=== PATIENT | male | born 1985 | race Caucasian/White ===

== ENCOUNTER 2020-06-07 18:28 | Emergency (ER) | payer OTHER, SELFPAY ==
[2020-06-07 19:14] VITALS: BP 142/65; PULSE 71; RESP 16; TEMP 36.6; O2SAT 98; BMI 57.0
--- NOTE | 2020-06-07 21:04 | ECG_ITS ---
Test Reason : HEADACHE Blood Pressure : / mmHG Vent. Rate : 061 BPM Atrial Rate : 061 BPM P-R Int : 202 ms QRS Dur : 102 ms QT Int : 400 ms P-R-T Axes : 019 -05 006 degrees QTc Int : 402 ms Normal sinus rhythm Normal ECG When compared with ECG of 15-MAY-2015 14:32, No significant change was found Referred By: Ramona Amezcua Electronically Signed By:JONATHON FOSTER MD
--- NOTE | 2020-06-07 21:04 | CT_ITS ---
EXAMINATION: CTA OF THE HEAD AND NECK CLINICAL INFORMATION: headache, R hand numbness, loss of vision R eye COMPARISON: None TECHNIQUE: Initial unenhanced multidetector volumetric CT images were obtained through the head. Test bolus sequences followed by intravenous administration 100 mL of Omnipaque 350. Helical imaging was performed in the axial plane from the mediastinum to the skull vertex. Delayed postcontrast imaging of the head was also performed. The data was processed at the ct scan special procedures technologist's workstation for generation of MIP sequences. Three-dimensional volume rendered reformatted images were also generated at an offline 3-D workstation. Stenoses are assessed in accordance with NASCET criteria unless otherwise indicated. DLP: 2631 mGy-cm. FINDINGS: CT head: There is no evidence of acute intracranial hemorrhage or territorial infarction. There is no loss of sanchez to white matter differentiation. No abnormal mass effect or midline shift is seen. No extra-axial fluid collections are identified. There is no abnormal enhancement. The ventricles are normal in size. There is no abnormal attenuation within the brain parenchyma. The osseous structures and soft tissues are normal. The mastoid air cells and visualized portions of the paranasal sinuses are well aerated. CTA neck: The aortic arch is of normal contour and caliber. Classic 3 vessel branching pattern of the aortic arch. No significant stenosis of the branch origins. Assessment of the carotid and vertebral arteries at the base of the neck is slightly limited by the artifact introduced by the significant bones and soft tissues at the level of the shoulders. The common and internal carotid arteries opacify normally without focal stenosis or occlusion. The cervical segments of the vertebral arteries opacify normally without focal stenosis or occlusion. The thyroid gland and remaining cervical soft tissues are within normal limits. No significant abnormalities of the cervical spine. The visualized lung apices and upper mediastinum are within normal limits. CTA head: There is normal opacification of major intracranial arteries. No focal flow-limiting stenosis, discrete proximal large artery occlusion, or saccular intradural aneurysm. Normal contrast opacification of the petrous, cavernous, paraophthalmic, and supraclinoid segments of the internal carotid arteries without focal stenosis. Normal appearance of the anterior cerebral and middle cerebral arteries without focal occlusion or stenosis. Normal anterior communicating artery. Normal appearance of the intradural vertebral and posterior inferior cerebellar arteries. Normal appearance of the basilar, superior cerebellar, and P1 segments of the posterior cerebral arteries. Normally opacified posterior communicating arteries. Normal appearance of the distal segments of the posterior cerebral arteries bilaterally. Dural venous sinuses appear patent. CT/CT angio head neck IMPRESSION: Normal appearing CTA of the head and neck without evidence of occlusion of the carotid, vertebral, and intracranial vasculature. No high-grade stenoses are identified. No acute intracranial abnormalities are identified
--- NOTE | 2020-06-07 21:05 | ED.NEUROSD ---
HPI - Neuro Symptoms/Deficit General Chief Complaint: Eye Problems Stated Complaint: vision problem,numbness Time Seen by Provider: 06/07/20 20:55 Source: patient Mode of arrival: ambulatory Limitations: no limitations History of Present Illness HPI Narrative: 34 yo male at 4pm had blurred vision R eye as well as sharp bright line cutting across vision lasting 2 minutes since then dull headache - also noted R hand numbness at that time that has now subsided just to tingling - no prior episodes of this in past, no AC therapy Onset (ago): hour(s) (4pm today (5 hours ago)) Location: other (R eye, R hand) History of same: No Severity: severe Quality: other (numbness) Relieving factors: none Exacerbating factors: none Context: sudden onset On Anticoagulants: No Associated symptoms: headaches (mild frontal 3/10) Treatments Prior to Arrival: none Related Data Previous Rx's Medication Instructions Recorded isyojhsrzz-cbhnygxhusswv-sgiu 1 tab PO Q6H PRN #20 tab 06/08/20 cyclobenzaprine 10 mg PO TID PRN #14 tab 06/08/20 Allergies Allergy/AdvReac Type Severity Reaction Status Date / Time No Known Allergies Allergy Unverified 02/10/20 15:25 [No Known Allergies*] Review of Systems Review of Systems: Constitutional : No Fever, No Chills, No Fatigue ENT/Mouth : No sore throat, No Rhinorrhea Eyes: No Eye Pain, No Swelling, No Redness Cardiovascular : No Chest Pain, No SOB, No Dyspnea on Exertion Respiratory : No Cough, No Sputum Gastrointestinal : No Nausea, No Vomiting, No Diarrhea, No abdominal Pain Genitourinary : No Dysuria, No Urinary Frequency, No Hematuria, Musculoskeletal : No joint pain, No Myalgias, No Joint Swelling Skin : No Skin Lesions, No rash Neuro : No Weakness, pos Numbness, No Dizziness, positive Headache Psych : No Anxiety/Panic, No Depression Heme/Lymph: No Bruising, No Bleeding,No Lymphadenopathy Endocrine : No Polyuria, No Polydipsia All other systems reviewed and are negative [facility] Past Medical History Attestation statement: The following information was validated with the patient. Medical History Heartburn Hernia Social History Social History (Updated 06/07/20 @ 21:07 by Ramona Amezcua DO) Alcohol intake: former Smoking Status: Former smoker Use of substances other than those prescribed or required for medical reasons: No Substance Use Type: Marijuana Advance Directives: No Advance Directives Information Provided: No Physical Exam Vital Signs: Vital Signs: Last Vital Signs Temp 97.5 F 06/07/20 23:11 Pulse 67 06/08/20 00:26 Resp 18 06/08/20 00:26 BP 127/66 06/08/20 00:26 Pulse Ox 100 06/08/20 00:26 Body Mass Index 57.0 Appearance: Alert. Oriented X3. No acute distress. Eyes: Pupils equal, round and reactive to light. ENT: Pharynx normal. Neck: Normal inspection. Neck supple. CVS: Normal heart rate and rhythm. Pulses normal. Respiratory: No respiratory distress. Breath sounds normal. Abdomen: Soft and nontender. Skin: Skin warm and dry. Normal skin color. Normal skin turgor. Extremities: No lower extremity edema. No calf ttp Neuro: Oriented X 3. No motor deficit. No sensory deficit. CN 2-12 intact Course Course Course Narrative: NIH still 0 - no acute findings on CTA scan not toxic appearing seems like possibly complex migraine did not lose vision - at this time stable for DC will start on low dose aspirin MDM - Neuro Symptoms/Deficit MDM Narrative Medical decision making narrative: 34 yo male with symptoms at 4pm - R eye change in vision that has resolved, dull headache, R hand tingling that was initially numbness - will need labs, CTA of head/neck for dissection/aneurysm - his NIH is 0 at this time and presents 5 hours after onset so given time frame and low score not a candidate for tPa, could also be complex migraine given onset of headache at that time - neuro symptoms have resolved Lab Data Result diagrams: 06/07/20 21:34 06/07/20 22:39 Labs: Lab Results 06/07/20 06/07/20 06/07/20 Range/Units 21:34 21:34 21:35 WBC 11.0 H (4.8-10.8) X10*3/uL RBC 4.88 (4.60-5.80) X10*6/uL Hgb 14.8 (14.0-18.0) g/dl Hct 45.0 (42-52) % MCV 92.2 (80-98) fL MCH 30.3 (27.0-33.0) pg MCHC 32.9 (31.0-36.0) g/dl RDW 12.7 (11.0-16.0) % Plt Count 243 (160-400) X10*3/uL MPV 9.5 (9.4-12.4) fL Immature Gran % (Auto) 0.3 (0.0-0.4) % Neut % (Auto) 57.3 (45-73) % Lymph % (Auto) 30.8 (20-40) % [place] % (Auto) 9.2 (2-11) % Eos % (Auto) 1.8 (0-4) % Baso % (Auto) 0.6 (0-2) % Lymph # (Auto) 3.4 (1.2-4.9) X10*3/uL [place] # (Auto) 1.0 (0.1-1.2) X10*3/uL Eos # (Auto) 0.2 (0.0-0.4) X10*3/uL Baso # (Auto) 0.1 (0.0-0.2) X10*3/uL Abs Immat Gran (auto) 0.03 (0.00-0.03) X10*3/uL Absolute Neuts (auto) 6.3 (2.0-8.3) X10*3/uL Absolute Nucleated RBC 0.000 (0.0-0.012) X10*3/uL Nucleated RBC % (auto) 0.0 (0.0-0.2) /100WBC PT Cancelled INR Cancelled APTT Cancelled Sodium Cancelled Potassium Cancelled Chloride Cancelled Carbon Dioxide Cancelled Anion Gap Cancelled BUN Cancelled Creatinine Cancelled Estim Creat Clear Calc Cancelled Estimated GFR Cancelled Random Glucose Cancelled Calcium Cancelled Magnesium Cancelled 06/07/20 06/07/20 Range/Units 22:39 22:39 WBC (4.8-10.8) X10*3/uL RBC (4.60-5.80) X10*6/uL Hgb (14.0-18.0) g/dl Hct (42-52) % MCV (80-98) fL MCH (27.0-33.0) pg MCHC (31.0-36.0) g/dl RDW (11.0-16.0) % Plt Count (160-400) X10*3/uL MPV (9.4-12.4) fL Immature Gran % (Auto) (0.0-0.4) % Neut % (Auto) (45-73) % Lymph % (Auto) (20-40) % [place] % (Auto) (2-11) % Eos % (Auto) (0-4) % Baso % (Auto) (0-2) % Lymph # (Auto) (1.2-4.9) X10*3/uL [place] # (Auto) (0.1-1.2) X10*3/uL Eos # (Auto) (0.0-0.4) X10*3/uL Baso # (Auto) (0.0-0.2) X10*3/uL Abs Immat Gran (auto) (0.00-0.03) X10*3/uL Absolute Neuts (auto) (2.0-8.3) X10*3/uL Absolute Nucleated RBC (0.0-0.012) X10*3/uL Nucleated RBC % (auto) (0.0-0.2) /100WBC PT 11.9 INR 1.0 APTT 36.5 Sodium 138 Potassium 4.5 Chloride 105 Carbon Dioxide 24 Anion Gap 14 BUN 11 Creatinine 0.77 Estim Creat Clear Calc 224.0 Estimated GFR > 60 Random Glucose 94 Calcium 8.5 Magnesium 2.4 ECG Data Attestation: I personally reviewed and interpreted this ECG as follows: ECG interpretation date: 06/08/20 ECG interpretation time: 00:37 Interpretation: Rate: 61 Rhythm: NSR [place]: left Normal P waves. Normal JESIKA. Normal QRS complex. ST T wave : normal no GIULIANO qTC: normal prior studies: no acute ischemia The study has been interpreted contemporaneously by me. . NIH Stroke Scale Internal: Initial- Upon Arrival Level of Consciousness: Alert Level of Consciousness Questions: Answers both questions correctly Level of Consciousness Commands: Performs both tasks correctly Best Gaze: Normal Visual: No visual loss Facial Palsy: Normal Motor Arm (Right): No drift Motor Arm (Left): No drift Motor Leg (Right): No drift Motor Leg (Left): No drift Limb Ataxia: Absent Sensory: Normal Best Language: No aphasia Dysarthia: Normal Extinction and Inattention: No abnormality Score: 0 Discharge Plan Discharge Clinical Impression: Headache, Hand paresthesia Patient Disposition: Home, Self-Care Instructions: Acute Headache (ED) Additional Instructions: return to ED for any worsening symptoms or concerns take a baby aspirin daily 81mg Prescriptions: New cyclobenzaprine 10 mg tablet 10 mg PO TID PRN (Reason: muscle spasm) Qty: 14 RF: 0 dductowaug-boejcmvgeabok-aopp 50-325-40 mg tablet 1 tab PO Q6H PRN (Reason: pain) Qty: 20 RF: 0 Referrals: Suresh Ortega MD [Primary Care Provider] - 2 days Stand Alone Forms: Work/School Release
[2020-06-07 21:39] LABS: MANUAL DIFF FLAG NO
[2020-06-07 21:43] LABS: Basophils Absolute Auto 0.1 X10*3/uL (0.0-0.2); Basophils Percent Auto 0.6 % (0-2); Eosinophils Absolute Auto 0.2 X10*3/uL (0.0-0.4); Eosinophils Percent Auto 1.8 % (0-4); Hemoglobin 14.8 g/dl (14.0-18.0); Imm Gran Abs Auto 0.03 X10*3/uL (0.00-0.03); Imm Gran Pct Auto 0.3 % (0.0-0.4); Lymphocytes Absolute Auto 3.4 X10*3/uL (1.2-4.9); Lymphocytes Percent Auto 30.8 % (20-40); Mean Corpuscular HGB Conc 32.9 g/dl (31.0-36.0); Mean Corpuscular Hemoglobin 30.3 pg (27.0-33.0); Mean Corpuscular Volume 92.2 fL (80-98); Mean Platelet Volume 9.5 fL (9.4-12.4); Monocytes Percent Auto 9.2 % (2-11); Neutrophils Absolute Auto 6.3 X10*3/uL (2.0-8.3); Neutrophils Percent Auto 57.3 % (45-73); Platelet Count 243 X10*3/uL (160-400); Red Blood Count 4.88 X10*6/uL (4.60-5.80); Red Cell Distribution Width 12.7 % (11.0-16.0)
[2020-06-07 22:50] LABS: Prothrombin Time 11.9 SEC (10.8-13.0)
[2020-06-07 22:52] LABS: Partial Thromboplastin Time 36.5 SEC (24.1-38.0)
[2020-06-07 23:05] LABS: Anion Gap 14 (12-20); Blood Urea Nitrogen 11 mg/dL (9-16); Calcium 8.5 mg/dL (8.4-10.2); Carbon Dioxide 24 mmol/L (22-29); Chloride 105 mmol/L (96-108); Estimated Glomerular Filt Rate > 60; Glucose Random 94 mg/dL (60-115); Magnesium 2.4 mg/dL (1.6-2.6); Potassium 4.5 mmol/l (3.3-5.1); Sodium 138 mmol/L (135-145)
[2020-06-07 23:11] VITALS: BP 113/67; PULSE 59; RESP 18; TEMP 36.4; O2SAT 99
[2020-06-08] MEDS: iohexoL 350 MG/ML 100 ML INFUS..BTL 70 ML IV (00:05)
[2020-06-08 00:26] VITALS: BP 127/66; PULSE 67; RESP 18; O2SAT 100
[2020-06-08] MEDS: Acetaminophen 325 MG TABLET 650 MG PO (00:43)
== END 2020-06-08 01:35 | disposition home or self-care (01) ==
PROVIDERS: Emergency Provider Emergency Medicine; PCP Family Medicine
DX: R51.9 Headache, unspecified (principal); R20.2 Paresthesia of skin; Z87.891 Personal history of nicotine dependence
CPT/HCPCS: 36415; 70496; 70498; 80048; 83735; 85025; 85610; 85730; 93005; 99284; Q9967

== ENCOUNTER 2021-07-16 16:03 | Emergency (ER) | payer OTHER, SELFPAY ==
[2021-07-16 17:31] VITALS: BP 146/68; PULSE 55; RESP 18; TEMP 36.7; O2SAT 99; BMI 53.4
--- NOTE | 2021-07-16 18:24 | ED_ITS ---
HPI - Wound/Laceration General Chief Complaint: Wound/Laceration Stated Complaint: laceration on thumb Source: patient Mode of arrival: ambulatory Limitations: no limitations History of Present Illness HPI narrative: 35-year-old male presents with laceration to his left thumb after cutting it with a razor blade on accident. Patient has full range of motion. Unknown when his last Tdap was updated. Bleeding is controlled at this time. Onset (ago): hour(s) (Within the hour of arrival) Extremity Location: left: hand (thumb) Place: home Patient tetanus UTD: No Context: accidental Associated symptoms: pain Treatments prior to arrival: bandage Related Data Previous Rx's Medication Instructions Recorded cowlvyylzi-ezygsgzlqtuid-pttcmrbu 1 tab PO Q6H PRN #20 tab 06/08/20 50 mg-325 mg-40 mg tablet cyclobenzaprine 10 mg tablet 10 mg PO TID PRN #14 tab 06/08/20 Allergies Allergy/AdvReac Type Severity Reaction Status Date / Time No Known Allergies Allergy Verified 07/16/21 18:33 [No Known Allergies*] Review of Systems Review of Systems: Constitutional: No Fever, No Chills ENT/Mouth: No Ear Pain, No Hoarseness, No sore throat Eyes: No Eye Pain, No Swelling, No Redness, No Foreign Body Cardiovascular: No Chest Pain, No SOB Respiratory: No Cough, No Dyspnea Gastrointestinal: No Nausea, No Vomiting, No Diarrhea, No abdominal Pain Genitourinary: No Dysuria, No Hematuria Musculoskeletal: positive left thumb pain, No Myalgias, No Joint Swelling Skin: Positive left thumb laceration No rash Neuro: No Weakness, No Numbness, No Paresthesias, No Loss of Consciousness, No Dizziness, No Headache Psych: No Anxiety/Panic, No Depression Heme/Lymph: no easy bruising, no Lymphadenopathy Endocrine: No Polyuria, No Polydipsia Yes all other systems are reviewed and are negative [facility] Past Medical History Attestation statement: The following information was validated with the patient. Source: old records reviewed Medical History Afib Heartburn Hernia Obesity Social History Social History Alcohol intake: former Substance Use Type: Marijuana Advance Directives: No Advance Directives Information Provided: Yes Physical Exam Vital Signs: Vital Signs: Last Vital Signs Temp 98.1 F 07/16/21 17:31 Pulse 52 07/16/21 18:40 Resp 16 07/16/21 18:40 BP 138/78 07/16/21 18:40 Pulse Ox 99 07/16/21 18:40 BMI result Body Mass Index 53.4 Appearance: Alert. Oriented X3. No acute distress. Eyes: Pupils equal, round and reactive to light. ENT: Pharynx normal. Neck: Normal inspection. Neck supple. CVS: Normal heart rate and rhythm. Pulses normal. Respiratory: No respiratory distress. Breath sounds normal. Abdomen: Soft and nontender. Skin: 2 cm laceration to the base of left thumb Extremities: No lower extremity edema. Full range of motion. No indication of tendon injury. Strength 5/5 to all digits. Brisk and equal capillary refill to all digits. Neuro: No motor deficit. No sensory deficit. Cranial nerves 2-12 intact. Course Course Course Narrative: 35-year-old male presents with laceration to the left thumb. Accidentally slipped with a razor blade as he was doing electrical work and hit the base of his thumb. He does have full range of motion, strength 5/5, no indication of flexor or extension tendon injury. Will update Tdap vaccine at this time. Prepped and draped in sterile fashion. Patient tolerated procedure well. Patient verbalized understanding of and agrees to plan of care discharge home. Verbalized understanding of signs and symptoms indicating need for emergent intervention MDM - Wound/Laceration Differential Diagnosis Differential diagnosis: Likely laceration Medical Records Attestation: I reviewed the patient's medical records. Procedures Laceration Laceration 1: Site: hand Side (If applicable): left (thumb) Size (cm): 6 Description: linear Depth: simple, single layer Local Anesthetic: lidocaine 2% Amount of anesthesia used (mL): 4 Pre-repair: wound explored, irrigated extensively and deep structures intact Skin layer closed with: nylon Size (cm): 4-0 Number of sutures: 6 Technique: simple, interrupted Discharge Plan Discharge Clinical Impression: Laceration Patient Disposition: Home, Self-Care Instructions: Care For Your Stitches (ED), Finger Laceration (ED) Additional Instructions: You were treated for laceration to the left thumb. We placed 6 sutures. Please keep the area clean and dry. Do not soak the injury in water for extended periods of time. Return in 10 days to have sutures removed. If you notice any signs or symptoms indicating infection please return for evaluation. We updated your Tdap vaccine today. Thank you for choosing this emergency department for evaluation. Please follow-up with primary care physician as needed. Return to the emergency department for any new, concerning, or worsening symptoms. Prescriptions: No Action cyclobenzaprine 10 mg tablet 10 mg PO TID PRN (Reason: muscle spasm) Qty: 14 0RF wsouawgkog-cfnqqfomijxjy-fkue 50-325-40 mg tablet 1 tab PO Q6H PRN (Reason: pain) Qty: 20 0RF Interventions: ED Discharge Assessment Last Done: 07/16/21 20:55 Discharge Date/Time: 07/16/21 21:03
[2021-07-16 18:40] VITALS: BP 138/78; PULSE 52; RESP 16; O2SAT 99
[2021-07-16] MEDS: Lidocaine HCl 2 % MPF 5 ML VIAL SUBCUT (18:53)
[2021-07-16] MEDS: Diphth,Pertus(ACell),Tet Adult 0.5 ML SYRINGE IM (18:54)
== END 2021-07-16 21:03 | disposition home or self-care (01) ==
PROVIDERS: Emergency Provider Internal Medicine; PCP Family Medicine
DX: S61.012A Laceration without foreign body of left thumb without damage to nail, initial encounter (principal); S60.312A Abrasion of left thumb, initial encounter; W26.9XXA Contact with unspecified sharp object(s), initial encounter; Y93.9 Activity, unspecified; Y92.002 Bathroom of unspecified non-institutional (private) residence as the place of occurrence of the external cause; Y99.9 Unspecified external cause status; Z79.899 Other long term (current) drug therapy
CPT/HCPCS: 12002; 90471; 90715; 99284

== ENCOUNTER 2024-06-06 14:46 | Emergency (ER) | payer OTHER, SELFPAY ==
--- NOTE | 2024-06-06 15:55 | ECG_ITS ---
Test Reason : CP Blood Pressure : */* mmHG Vent. Rate : 75 BPM Atrial Rate : 75 BPM P-R Int : 196 ms QRS Dur : 106 ms QT Int : 360 ms P-R-T Axes : 29 4 18 degrees QTcB Int : 402 ms Normal sinus rhythm Normal ECG When compared with ECG of 08-Jun-2020 00:28, No significant change was found Referred By: Monica Munson Electronically Signed By: Will Johnson
--- NOTE | 2024-06-06 16:26 | ED.GENADULT ---
HPI - General Adult General Chief complaint: General Medical Stated complaint: HBP, SOB numb lips Time Seen by Provider: 06/06/24 20:25 History of Present Illness ED Provider: Tenzin RICHARDSON narrative: The patient is a 38-year-old male who comes to the emergency room for evaluation of an episode of feeling unwell. He says this afternoon he had eaten some food and done some simple repairs on his car when he started to feel like something was wrong. He says that he felt that his body was tightening up, particularly in his left arm. He also felt like something was wrong with his vision. He felt like his vision was ?bright?. He also had some pressure in his chest and in his head and in his eyes and his legs. He felt like his lips were tingling. He also felt some pain in his flanks. He felt some shortness of breath. He felt somewhat generally unwell and checked his blood pressure which was quite elevated at 206/154. His symptoms were quite severe for about 15 minutes but they were continuous at a less degree of intensity for a longer period of time. He came to the emergency room by private vehicle. The patient says that a week ago he had some similar symptoms including chest pain. He went to the emergency room at [facility] and was evaluated and released. He has been monitoring his blood pressure to discuss with his associate team physician. He says that he has a associate team physician because he has had 2 episodes of atrial fibrillation in his life. He had 1 when he was in his 20s and a 2nd episode about 10 years after that. He is on no medications although he takes p.r.n. lorazepam very occasionally. He has a strong family history of coronary disease. Multiple family members on both sides of his have had MIs around the age of 50. Related Data Previous Rx's ?Medication ?Instructions ?Recorded fpvdzecsnf-akztltlluidvv-lykxwdxk 1 tab PO Q6H PRN pain #20 tabs 06/08/20 50 mg-325 mg-40 mg tablet cyclobenzaprine 10 mg tablet 10 mg PO TID PRN muscle spasm #14 06/08/20 tabs Allergies Allergy/AdvReac Type Severity Reaction Status Date / Time No Known Allergies Allergy Verified 06/06/24 16:29 [No Known Allergies*] Review of Systems Review of Systems: Yes all other systems are reviewed and are negative [facility] Past Medical History Medical History Afib Heartburn Hernia Obesity Social History Social History (System 05/30/23 @ 14:55 by Loraine Estevez) Alcohol intake: former Use of substances other than those prescribed or required for medical reasons: Yes Substance Use Type: Marijuana Advance Directives: No Advance Directives Information Provided: Yes Do you have a plan to hurt others: No Plan Physical Exam ED Vital Signs: Vital Signs - 24 hr 06/06/24 16:27 06/06/24 19:43 06/06/24 20:28 Temperature 98.4 F 97.7 F 98.2 F Pulse Rate 79 75 67 Respiratory Rate 18 18 16 Blood Pressure 160/85 H 147/82 H 127/65 Pulse Oximetry 99 98 99 Oxygen Delivery Method Room Air Room Air Room Air 06/06/24 21:16 Temperature 98.2 F Pulse Rate 67 Respiratory Rate 16 Blood Pressure 127/65 Pulse Oximetry 99 Oxygen Delivery Method Room Air BMI result Body Mass Index 56.0 Const Other: The patient is a 38-year-old male who is awake and alert. He is pleasant cooperative. He does not appear obviously acutely ill in any way. He is a large man with a BMI of 56. HENMT Other: Face is symmetrical. Mucous membranes moist. Tongue is midline. Eyes General: appearance normal, both eyes and all related structures Conjunctivae: conjunctivae normal Sclerae: sclerae normal Pupils: Equal, round and reactive pupils present EOM: EOMs intact bilaterally Neck Neck: Yes normal visual inspection, Yes full ROM and Yes no JVD Resp Effort & Inspection: normal respiratory effort Auscultation: clear to auscultation bilaterally Cardio Rate: regular rate Rhythm: regular rhythm Heart sounds: S1 normal heart sound present and S2 normal heart sound present GI Other: Abdomen is soft and nontender Skin Other: Skin is dry and unremarkable. Neuro Other: The patient is awake and alert, pleasant and cooperative. Mental status is normal. Pupils are round equal, eye movements are intact, facial movements are normal, speech is clear, he moves his extremities normally and appropriately, gait is steady. Cranial nerves: Yes Equal, round and reactive pupils present Extrem Other: No calf swelling or tenderness. No asymmetry. No edema. Course Course Course Narrative: This is an RME performed by Lety Munson CNP: Additional HPI, ROS, PE not included below will be deferred to primary provider. Patient had been in the waiting room before triage, was advised by registration staff at 15:55 that he began experiencing new onset of chest pain EKG was ordered revealing a normal sinus rhythm with ventricular rate of 75, QTC 402, no ST elevation. Patient is a 38-year-old male who initially presented to the emergency department for evaluation of hypertension at home reports reading of 209/154 while he was experiencing headache, shortness of breath, numbness sensation to the hips, low back pain, bilateral leg pain, shortness of breath. Reports he had been on antihypertensive medications a while ago?, possibly 1-2 years ago, then he began losing weight was working more and was subsequently becoming hypotensive therefore they were discontinued. He was since recently been keeping track of his blood pressure readings at home they have typically been 150 systolically. Took 2 baby aspirin prior to arrival, in addition to lorazepam. Plan: EKG, serum labs Medical Decision Making Medical Decision Making MDM Narrative: The patient is a 38-year-old male who was on no regular medications. He has had 2 brief episodes of atrial fibrillation in his lifetime but is on no medications for them and has not had any problems with atrial fibrillation for some time. He has a strong family history coronary disease. He describes several family members who have had MIs around the age of 50. He does not describe people having MIs at an earlier age. He had an unusual constellation of symptoms today that included a sense of his body tightening, a sense of discomfort in his chest, a sense of some visual symptoms, and some back discomfort. This was associated with an elevated blood pressure reading. Apparently he had a somewhat similar episode a week ago and was seen at [facility]'s Emergency room. He was treated and released at that time. At the time that I saw the patient he was essentially completely asymptomatic. His EKG is unchanged. Labs are unremarkable including 2 undetectable troponins. I took his blood pressure with a an appropriately sized cuff on his left upper arm. His blood pressure was 125 an over 65. His heart rate was 67. Given how well he looks currently and his unremarkable findings on his EKG and his labs I do not see an indication for further testing. I do not think this presentation is likely suggestive of pulmonary embolism or any kind of aortic pathology. He apparently has a PCP appointment tomorrow and a cardiology appointment in 3 days. He will be discharged to keep these appointments. Lab Data 06/06/24 16:46 06/06/24 16:46 Labs: Lab Results 06/06/24 06/06/24 06/06/24 Range/Units 16:46 19:53 19:58 WBC 9.1 (4.8-10.8) X10*3/uL RBC 4.89 (4.60-5.80) X10*6/uL Hgb 14.8 (14.0-18.0) g/dl Hct 43.2 (42.0-52.0) % MCV 88.3 (80.0-98.0) fL MCH 30.3 (27.0-33.0) pg MCHC 34.3 (31.0-36.0) g/dl RDW 12.9 (11.0-16.0) % Plt Count 226 (160-400) X10*3/uL MPV 9.0 L (9.4-12.4) fL Immature Gran % (Auto) 0.3 (0.0-0.4) % Neut % (Auto) 67.1 (45-73) % Lymph % (Auto) 20.8 (20-40) % [place] % (Auto) 9.7 (2-11) % Eos % (Auto) 1.4 (0-4) % Baso % (Auto) 0.7 (0-2) % Lymph # (Auto) 1.9 (1.2-4.9) X10*3/uL [place] # (Auto) 0.9 (0.1-1.2) X10*3/uL Eos # (Auto) 0.1 (0.0-0.4) X10*3/uL Baso # (Auto) 0.1 (0.0-0.2) X10*3/uL Abs Immat Gran (auto) 0.03 (0.00-0.03) X10*3/uL Absolute Neuts (auto) 6.1 (2.0-8.3) x10*3/uL Absolute Nucleated RBC 0.000 (0.0-0.012) X10*3/uL Nucleated RBC % (auto) 0.0 (0.0-0.2) /100WBC PT 11.3 (10.9-12.4) SEC INR 1.0 (0.9-1.1) Sodium 142 (135-145) mmol/L Potassium 4.5 (3.3-5.1) mmol/L Chloride 109 H (96-108) mmol/L Carbon Dioxide 26 (22-29) mmol/L Anion Gap 12 (12-20) BUN 16 (9-16) mg/dL Creatinine 0.85 (0.5-1.4) mg/dL Estim Creat Clear Calc 192.7 Estimated GFR > 60 Random Glucose 76 (60-115) mg/dL Calcium 9.4 D (8.4-10.2) mg/dL Magnesium 2.0 (1.6-2.6) mg/dL Total Bilirubin 0.2 (0.0-1.0) mg/dL AST 28 (5-37) U/L ALT 47 H (0-40) U/L Alkaline Phosphatase 97 (39-117) U/L Troponin I High Sens < 2.7 < 2.7 (<3.5-35.0) ng/L Total Protein 7.3 (6.5-8.0) g/dL Albumin 4.4 (3.5-5.0) g/dL Urine Color Yellow Urine Appearance Clear Urine pH 6.0 (5.0-9.0) Ur Specific [place] 1.025 (1.005-1.025) Urine Protein Negative (Neg-Trace) mg/dL Urine Glucose (UA) Negative (Negative) mg/dL Urine Ketones Negative (Negative) mg/dL Urine Blood Negative (Negative) Urine Nitrite Negative (Negative) Ur Leukocyte Esterase Negative (Negative) Independent Interpretation I performed an independent interpretation of an: EKG Interpretation: EKG at 1603 shows normal sinus rhythm at 75 beats per minute. The EKG is similar to previous EKGs. No acute changes. Discharge Plan Discharge Clinical Impression: Chest pain, Hypertension Patient Disposition: Home, Self-Care Additional Instructions: At the moment your testing in the emergency room today seems very reassuring. Your vital signs are also reassuring here in the emergency room. Please keep your appointment with your regular doctor tomorrow and with your cardiology office on Friday. If at any point you are significantly worse before then please return to the emergency room. Prescriptions: No Action cyclobenzaprine 10 mg tablet 10 mg PO TID PRN (Reason: muscle spasm) Qty: 14 0RF bwasaytpoc-ccibyhgonylvf-ajzr 50-325-40 mg tablet 1 tab PO Q6H PRN (Reason: pain) Qty: 20 0RF Referrals: Paddy Leal NP [Nurse Practitioner] - (chest pain, hypertension) Suresh Ortega MD [Primary Care Provider] - Interventions: ED Discharge Assessment Last Done: 06/06/24 21:16 Discharge Date/Time: 06/06/24 21:17 Print Language: Tajik
[2024-06-06 16:27] VITALS: BP 160/85; PULSE 79; RESP 18; TEMP 36.9; O2SAT 99; BMI 56.0
[2024-06-06 16:51] LABS: MANUAL DIFF FLAG NO
[2024-06-06 16:59] LABS: Basophils Absolute Auto 0.1 X10*3/uL (0.0-0.2); Basophils Percent Auto 0.7 % (0-2); Eosinophils Absolute Auto 0.1 X10*3/uL (0.0-0.4); Eosinophils Percent Auto 1.4 % (0-4); Hematocrit 43.2 % (42.0-52.0); Hemoglobin 14.8 g/dl (14.0-18.0); Imm Gran Abs Auto 0.03 X10*3/uL (0.00-0.03); Imm Gran Pct Auto 0.3 % (0.0-0.4); Lymphocytes Absolute Auto 1.9 X10*3/uL (1.2-4.9); Lymphocytes Percent Auto 20.8 % (20-40); Mean Corpuscular HGB Conc 34.3 g/dl (31.0-36.0); Mean Corpuscular Hemoglobin 30.3 pg (27.0-33.0); Mean Corpuscular Volume 88.3 fL (80.0-98.0); Monocytes Absolute Auto 0.9 X10*3/uL (0.1-1.2); Monocytes Percent Auto 9.7 % (2-11); Neutrophils Absolute Auto 6.1 x10*3/uL (2.0-8.3); Neutrophils Percent Auto 67.1 % (45-73); Platelet Count 226 X10*3/uL (160-400); Red Blood Count 4.89 X10*6/uL (4.60-5.80); Red Cell Distribution Width 12.9 % (11.0-16.0); White Blood Count 9.1 X10*3/uL (4.8-10.8)
[2024-06-06 17:06] LABS: Prothrombin Time 11.3 SEC (10.9-12.4)
[2024-06-06 17:17] LABS: Alanine Aminotransferase 47 U/L (0-40); Albumin Level 4.4 g/dL (3.5-5.0); Alkaline Phosphatase 97 U/L (39-117); Anion Gap 12 (12-20); Aspartate Amino Transferase 28 U/L (5-37); Bilirubin Total 0.2 mg/dL (0.0-1.0); Blood Urea Nitrogen 16 mg/dL (9-16); Calcium 9.4 mg/dL (8.4-10.2); Carbon Dioxide 26 mmol/L (22-29); Chloride 109 mmol/L (96-108); Creatinine Clr Calc Pharmacy 192.7; Estimated Glomerular Filt Rate > 60; Glucose Random 76 mg/dL (60-115); Potassium 4.5 mmol/L (3.3-5.1); Sodium 142 mmol/L (135-145); Total Protein 7.3 g/dL (6.5-8.0)
[2024-06-06 17:27] LABS: Troponin-I High Sensitivity < 2.7 ng/L (<3.5-35.0)
[2024-06-06 19:43] VITALS: BP 147/82; PULSE 75; RESP 18; TEMP 36.5; O2SAT 98
[2024-06-06 20:07] LABS: Appearance Urine Clear; Color Urine Yellow; Glucose Urine UA Negative (Negative); Leukocyte Esterase Urine Negative (Negative); Nitrite Urine Negative (Negative); Specific Gravity - Urine 1.025 (1.005-1.025); Urine Blood Negative (Negative); Urine Ketones Negative (Negative); Urine Protein Negative (Neg-Trace)
[2024-06-06 20:25] LABS: Troponin-I High Sensitivity < 2.7 ng/L (<3.5-35.0)
[2024-06-06 20:28] VITALS: BP 127/65; PULSE 67; RESP 16; TEMP 36.8; O2SAT 99
[2024-06-06 21:16] VITALS: BP 127/65; PULSE 67; RESP 16; TEMP 36.8; O2SAT 99
[2024-06-07 04:21] LABS: B Type Natriuretic Peptide < 10 pg/mL (<100)
== END 2024-06-06 21:17 | disposition home or self-care (01) ==
PROVIDERS: Nurse Practitioner Family; Emergency Provider Emergency Medicine; PCP Family Medicine
DX: R06.02 Shortness of breath (principal); R07.89 Other chest pain; I10 Essential (primary) hypertension; R10.2 Pelvic and perineal pain; Z79.899 Other long term (current) drug therapy
CPT/HCPCS: 36415; 80053; 81003; 83735; 83880; 84484; 85025; 85610; 93005; 99284

== ENCOUNTER → 2024-06-06 15:55 | Outpatient (BNV) | payer OTHER, SELFPAY | PROVIDERS: Emergency Provider Emergency Medicine; PCP Family Medicine; Visit Provider Internal Medicine Cardiovascular Disease | DX: R07.9 Chest pain, unspecified (principal) | CPT/HCPCS: 93010 ==

== ENCOUNTER 2024-12-20 11:36 | Emergency (ER) | payer OTHER, SELFPAY ==
--- OUTSIDE RECORDS SUMMARY | 2024-12-14 23:59 | XMS_ITS | Continuity of Care Document ---
Author Organization [facility] Address [address] [place] [id number] Care Team Providers Care Membership Sales Manager Name Role Phone Jordan LUO, Suresh Terrell Primary Care Physician [phone] [place] [facility] 11/14/24 - 12/14/24 [facility] [address] [place] [address]- Encounter Type: Triage Allergies, Adverse Reactions, Alerts No Known Allergies Immunizations Given and Recorded Vaccine Date Status Refusal Reason tetanus/diphtheria/pertussis, acel(Tdap) 07/16/21 Recorded tetanus/diphtheria/pertussis, acel(Tdap) 05/22/10 Given SARS-CoV-2 (COVID-19) mRNA-1273 vaccine 05/08/21 R ecorded SARS-CoV-2 (COVID-19) mRNA-1273 vaccine 04/10/21 R ecorded Medications amLODIPine 5 mg oral tablet 1 tablet = 5 mg, By Mouth, Daily, # 90 tablet, 1 Refills, Maintenance, 09/13/24 9:35:00 AM EDT, Tablet, [id number], Partial fill upon patient request if the prescription is for a schedule II opioid drug., 180, cm, 08/06/24 16:44:00 EDT, Height, 183.2, kg, 07/16/23 21:07:00 EST, Dry Weight Start Date: 09/13/24 Status: Ordered Quantity: 90.0 Unit: tablet Repeat number: 2 Indications: Essential (primary) hypertension; LORazepam 1 mg oral tablet 1 tablet = 1 mg, By Mouth, 2 times a day, PRN as needed for anxiety, # 30 tablet, 1 Refills, Maintenance, 06/04/24 12:31:00 PM EST, Tablet, [id number], 180, cm, 05/30/24 5:24:00 EST, Height, 183.2, kg, 07/16/23 21:07:00 EST, Dry Weight Start Date: 06/04/24 Status: Ordered Quantity: 30.0 Unit: tablet Repeat number: 2 Readi-Cat 2 Smoothie Banana 2% oral suspension See Instructions, Drink 450 ml 4 hours prior to procedure; drink 450 ml one hour prior to procedure., # 900 mL, 0 Refills, Maintenance, 11/14/24 4:56:00 AM EDT, [id number], Partial fill upon patient request if the prescription is for a schedule II opioid drug., Drink 450 ml 4 hours prior to procedure; drink 450 ml one hour prior to procedure., 180, cm, 11/11/24 16:37:00 EDT, Height, 181.5, kg, 11/09/24 6:43:00 EDT, Dry Weight Start Date: 11/14/24 Status: Ordered Quantity: 900.0 Unit: mL Repeat number: 1 Problem List Condition Confirmation Course Effective Dates Status Health St atus Informant Allergic asthma Confirmed Active A-fib Confirmed Active ADHD Confirmed Active Morbid obesity with BMI of 50.0-59.9, adult Confirmed Active Degenerative disc disease, lumbar Confirmed Active Dizziness Confirmed Active GERD (gastroesophageal reflux disease) Confirmed Active HTN (hypertension) Confirmed Active Pigmented nevus Confirmed Active Severe obstructive sleep apnea Confirmed Active Right inguinal hernia Confirmed Active Severe obesity Confirmed Active Tobacco user Confirmed Active Social History Social History Type Response Smoking Status Former smoker, quit more than 30 days ago; Other: quit 4 years ago as of 04/2023. smoked socially; entered on: 04/29/23 Sex Sex Representation Male (finding) Patient Care team information Care Team Personnel Name: Suresh Ortega MD Position: [facility] Physician - Primary Care Member Role: PCP Address: [address] [place] [id number]- Telecom: Care Team Related Persons Name: TERELL DELGADO Name: DAVE SERRANO Insurance Providers Guarantor name: CRISTINA DELGADO Health Plan Information #: 1 Payer: [employer] Payer Identifier: NA Member Number: [id number] Group Number: [id number] Subscriber Identifier: [id number] Relationship to Subscriber: self Coverage Type: Medicaid (Managed Care) Coverage Verification Date: CRISTIAN Telecom: CRISTIAN Address: NA
--- NOTE | ~2024-12-20 | XR_ITS ---
EXAMINATION: XR CHEST 2 VIEWS HISTORY: chest pressure COMPARISON: Comparison is made with the prior examination dated 05/15/2015. FINDINGS: PA and lateral views of the chest are submitted. The lungs are expanded and clear. There is no pleural effusion, pneumothorax, or pulmonary vascular congestion. The heart is normal in size. 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 XR/XR chest 2V IMPRESSION: No acute cardiopulmonary abnormality. Electronically signed by: Alex Tellez MD 12/20/2024 12:17 PM EDT
--- NOTE | 2024-12-20 11:42 | ED_ITS ---
[facility] - General Adult General Chief complaint: Chest Pain Stated complaint: High BP, Tingling lips Time Seen by Provider: 12/20/24 15:56 Source: patient Mode of arrival: ambulatory Limitations: no limitations History of Present Illness ED Provider: HPI narrative: 39-year-old male with a history of hypertension, takes amlodipine, for the past 2 days has been having elevated blood pressure, he has also had increased salt intake, called his PCP's office, was told to come into the emergency department, he does not endorse chest pressure as documented in triage note, he states he gets nervous and he took an Ativan 1 of the nights that he was feeling tingling around his lips. At the time of my evaluation denies headaches, vision changes, chest pain, dyspnea. Related Data Previous Rx's ?Medication ?Instructions ?Recorded hwwldujjjp-rfpdaunqvfizg-kvqxzaoq 1 tab PO Q6H PRN kandy n #20 tabs 06/08/20 50 mg-325 mg-40 mg tablet cyclobenzaprine 10 mg tablet 10 mg PO TID PRN muscle s pasm #14 06/08/20 tabs Allergies Allergy/AdvReac Type Severity Reaction Status Date / Time No Known Allergies (No Known Allergy Verified 12/20/24 11:47 Allergies*) Review of Systems 2 Constitutional: Constitutional: Reports as per [facility] Past Medical History Medical History Afib Obesity Heartburn Hernia Social History Social History Alcohol intake: former Substance Use Type: Marijuana Physical Exam ED Vital Signs: Vital Signs - 24 hr 12/20/24 11:43 Temperature 98.4 F Pulse Rate 77 Respiratory Rate 18 Pulse Oximetry 97 Oxygen Delivery Method Room Air BMI result Body Mass Index 55.5 Const Other: * Gen: ?Overall well-appearing patient, heavy-set * HEENT: PERRLA, EOMI, MMM, * Neck: Supple, no LAD * CV: RRR, no obvious murmurs appreciated * Resp: ?No wheezing rales rhonchi no stridor moving air well * Abd: ?Bowel sounds are present, no tenderness no rebound no rigidity * MSK: FROM, strength 5/5 all extremities * Skin: Warm, dry, intact, * Neuro: ?Alert and oriented x3, moving upper and lower extremities symmetrically, no obvious facial asymmetry noted Course Course Course Narrative: This is a rapid medical exam performed by Marisela Villalobos NP: Additional HPI, ROS, PE not included below will be deferred to primary provider. Patient is a 39-year-old male with history of afib presenting to the emergency department with complaint of chest discomfort, tingling to lips, 4th and 5th fingers of left hand, elevated BP readings for several days. States last night, felt chest pressure, a flush of warmth, chills, sweating, headache, then checked BP and it was very high (220 systolic). Did take an additional amlodipine 5mg last night at the direction of his father. Plan: EKG, labs, CXR Medical Decision Making Medical Decision Making MDM Narrative: Overall overall well-appearing and largely asymptomatic patient at the time emergency department, with a history of anxiety, had some symptoms over the past 2 nights that he took Ativan for, and doubled up on amlodipine, he takes a smal dose of amlodipine 5 mg now he is going to take twice a day, presenting with elevated blood pressure, apparently called PCP's office was told to come into the ER as he has had some other symptoms that they were concerned likely these having ACS, patient has no evidence for ACS, unremarkable EKG, cardiac enzymes reassuring, chest x-ray without mediastinal widening, spent some time with him discussing dietary changes, definitely concentrated on under 1 g and a half assault a day, weight loss, exercise Differential Diagnosis Differential Diagnoses: The differential diagnosis associated with the presentation includes (Hypertensive emergency, end-organ damage such as stroke, subarachnoid hemorrhage, ACS, ARTHUR,) Admission/Observation Consideration of admission/observation: Escalation of care including admission/observation considered 2022 Emergency Medicine Coding Guide from [employer] on 12/20/2024 All calculations should be rechecked by clinician prior to use RESULT SUMMARY: 4 Estimated Level of Service Problems: Moderate (4) Risk: Moderate (4) Data: Extensive (5) NARRATIVE MDM: This patient's problem complexity is Moderate as patient: with chronic illness(es) with exacerbation/progression/side effects of treatment. This patient's risk is Moderate due to: overall presentation requiring evaluation for a potentially Moderate-risk process. This patient's data complexity is Extensive due to: -multiple tests ordered/reviewed -independent interpretation of imaging or EKG INPUTS: Number and Complexity ?> 3 = 4: chronic illness with exacerbation (c) Risk level ?> 3 = Moderate Tests ordered ?> 3 = =3 Tests results reviewed (excluding labs) ?> 2 = 2 Prior external notes reviewed ?> 0 = 0 Assessment requiring and independent historian ?> 0 = No Independent interpretation of tests ?> 1 = Yes Discussed management/test interpretation w/external professional ?> 0 = No Lab Data MDM Lab Attestation statement: I reviewed the patient's lab results. 12/20/24 11:58 12/20/24 11:58 Labs: Lab Results 12/20/24 Range/Units 11:58 WBC 6.7 (4.8-10.8) X10*3/uL RBC 4.97 (4.60-5.80) X10*6/uL Hgb 14.8 (14.0-18.0) g/dl Hct 44.4 (42.0-52.0) % MCV 89.3 (80.0-98.0) fL MCH 29.8 (27.0-33.0) pg MCHC 33.3 (31.0-36.0) g/dl RDW 13.4 (11.0-16.0) % Plt Count 210 (160-400) X10*3/uL MPV 9.1 L (9.4-12.4) fL Immature Gran % (Auto) 0.4 (0.0-0.4) % Neut % (Auto) 65.5 (45-73) % Lymph % (Auto) 23.7 (20-40) % [place] % (Auto) 7.9 (2-11) % Eos % (Auto) 1.6 (0-4) % Baso % (Auto) 0.9 (0-2) % Lymph # (Auto) 1.6 (1.2-4.9) X10*3/uL [place] # (Auto) 0.5 (0.1-1.2) X10*3/uL Eos # (Auto) 0.1 (0.0-0.4) X10*3/uL Baso # (Auto) 0.1 (0.0-0.2) X10*3/uL Abs Immat Gran (auto) 0.03 (0.00-0.03) X10*3/uL Absolute Neuts (auto) 4.4 (2.0-8.3) x10*3/uL Absolute Nucleated RBC 0.000 (0.0-0.012) X10*3/uL Nucleated RBC % (auto) 0.0 (0.0-0.2) /100WBC PT 11.6 (10.9-12.4) SEC INR 1.0 (0.9-1.1) Sodium 140 (135-145) mmol/L Potassium 4.2 (3.3-5.1) mmol/L Chloride 106 (96-108) mmol/L Carbon Dioxide 27 (22-29) mmol/L Anion Gap 11 L (12-20) BUN 12 (9-16) mg/dL Creatinine 0.74 (0.5-1.4) mg/dL Estim Creat Clear Calc 218.1 Estimated GFR > 60 Random Glucose 121 H (60-115) mg/dL Calcium 9.2 (8.4-10.2) mg/dL Total Bilirubin 0.5 (0.0-1.0) mg/dL AST 20 (5-37) U/L ALT 37 (0-40) U/L Alkaline Phosphatase 99 (39-117) U/L Troponin I High Sens 3.1 (<3.5-35.0) ng/L Total Protein 7.0 (6.5-8.0) g/dL Albumin 4.5 (3.5-5.0) g/dL Independent Interpretation I performed an independent interpretation of an: EKG (71 beats per minute, otherwise normal ECG without dysrhythmia, AV juanita blocks or ST-T changes to suspect underlying ACS, my independent interpretation) and Plain X-Ray (My independent chest xray interpretation: Lungs: Lungs are clear bilaterally without evidence of focal consolidation, pleural effusion, or pneumothorax. Cardiac silhouette is unremarkable, no obvious mediastinal widening, no obvious bony abnormalities such as fractures. Impression: Normal chest X-r) Radiology Impression Discussion of test interpretation with radiology: I have reviewed the radiologist's reading. ( IMPRESSION: No acute cardiopulmonary abnormality. ) Discharge Plan Discharge Clinical Impression: Chronic hypertension Patient Disposition: Home, Self-Care Additional Instructions: I think it is fine for you to take amlodipine twice a day, your legs may get swollen that is 1 of the side effects, you should discuss this with your PCP, the rest of the workup today included chest x-ray, EKG, cardiac enzymes has been reassuring, we spent quite a bit of time discussing weight loss, salt intake, and cardiac exercise, follow up with the PCP for re-evaluation any other issues concerns come back to the ER Prescriptions: No Action cyclobenzaprine 10 mg tablet 10 mg PO TID PRN (Reason: muscle spasm) Qty: 14 0RF nsutyyjzpd-qlrcgljkhbkoo-xrta 50-325-40 mg tablet 1 tab PO Q6H PRN (Reason: pain) Qty: 20 0RF Referrals: Suresh Ortega MD [Primary Care Provider, Internal Medicine] Clinical Impression: Chronic hypertension Print Language: Faroese
[2024-12-20 11:43] VITALS: PULSE 77; RESP 18; TEMP 36.9; O2SAT 97; BMI 55.5
--- NOTE | 2024-12-20 11:45 | ECG_ITS ---
Test Reason : CHEST PRESSURE Blood Pressure : */* mmHG Vent. Rate : 71 BPM Atrial Rate : 71 BPM P-R Int : 180 ms QRS Dur : 100 ms QT Int : 366 ms P-R-T Axes : 27 -18 24 degrees QTcB Int : 397 ms Normal sinus rhythm Normal ECG When compared with ECG of 06-Jun-2024 16:03, No significant change was found Referred By: Shante Villalobos Electronically Signed By: JONATHON FOSTER MD
[2024-12-20 12:03] LABS: MANUAL DIFF FLAG NO
[2024-12-20 12:05] LABS: Hematocrit 44.4 % (42.0-52.0); Hemoglobin 14.8 g/dl (14.0-18.0); Imm Gran Abs Auto 0.03 X10*3/uL (0.00-0.03); Imm Gran Pct Auto 0.4 % (0.0-0.4); Lymphocytes Absolute Auto 1.6 X10*3/uL (1.2-4.9); Mean Corpuscular HGB Conc 33.3 g/dl (31.0-36.0); Mean Corpuscular Hemoglobin 29.8 pg (27.0-33.0); Mean Corpuscular Volume 89.3 fL (80.0-98.0); NRBC Abs Auto 0.000 X10*3/uL (0.0-0.012); NRBC Pct Auto 0.0 /100WBC (0.0-0.2); Platelet Count 210 X10*3/uL (160-400); Red Blood Count 4.97 X10*6/uL (4.60-5.80); White Blood Count 6.7 X10*3/uL (4.8-10.8)
[2024-12-20 12:15] LABS: INTERNATIONAL NORM RATIO 1.0 (0.9-1.1); Prothrombin Time 11.6 SEC (10.9-12.4)
[2024-12-20 12:25] LABS: Alanine Aminotransferase 37 U/L (0-40); Albumin Level 4.5 g/dL (3.5-5.0); Alkaline Phosphatase 99 U/L (39-117); Anion Gap 11 (12-20); Aspartate Amino Transferase 20 U/L (5-37); Blood Urea Nitrogen 12 mg/dL (9-16); Calcium 9.2 mg/dL (8.4-10.2); Carbon Dioxide 27 mmol/L (22-29); Chloride 106 mmol/L (96-108); Creatinine Clr Calc Pharmacy 218.1; Estimated Glomerular Filt Rate > 60; Potassium 4.2 mmol/L (3.3-5.1); Sodium 140 mmol/L (135-145); Total Protein 7.0 g/dL (6.5-8.0)
[2024-12-20 12:29] LABS: Troponin-I High Sensitivity 3.1 ng/L (<3.5-35.0)
[2024-12-20 15:58] VITALS: BP 134/72; PULSE 80; RESP 20; TEMP 36.8; O2SAT 99
--- OUTSIDE RECORDS SUMMARY | 2024-12-20 16:12 | XMS_ITS | Clinical Summary ---
Author Organization [facility] Address [address] [place] [phone] Phone Care Team Providers Care Decorator Inspector Name Role Phone Suresh Ortega MD Primary Care Provider + Allergies No known active allergies Medications No known medications Active Problems No known active problems Social History Tobacco Use Types Packs/Day Years Used Date Smoking Tobacco: Former Smokeless Tobacco: Never Alcohol Use Standard Drinks/Week Comments No 0 (1 standard drink = 0.6 oz pur e alcohol) Education Answer Date Recorded Are you interested in more education? Not on lakisha e 09/20/2022 Are you concerned about learning? Not on file 09/20/2022 No 09/20/2022 No 09/20/2022 Digital Access Answer Date Recorded No 10/17/2022 No 10/17/2022 No 10/17/2022 Reliable internet access at home? Not on file 10/17/2022 Device with a working camera? Not on file Sex and Gender Information Value Date Recorded Sex Assigned at Male 03/25/2018 2:26 PM EDT Legal Sex Male 1:55 PM EDT Gender Identity Male 03/25/2018 2:26 PM EDT Sexual Orientation Not on file Last Filed Vital Signs Vital Sign Reading Time Taken Comments Blood Pressure 141/74 04/29/2019 4:00 PM EST Pulse 59 04/29/2019 4:00 PM EST Temperature 36.1 C (97 F) 04/29/2019 12:58 PM EST Respiratory Rate 16 04/29/2019 2:45 PM EST Oxygen Saturation 98% 04/29/2019 4:00 PM EST Inhaled Oxygen Concentration - - Weight 189.6 kg (418 lb) 04/29/2019 12:58 PM EST Height 180.3 cm (5' 11 ) 04/29/2019 12:58 PM EST Body Mass Index 58.3 04/29/2019 12:58 PM EST Plan of Treatment Health Maintenance Due Date Last Done Comments Adult Td,Tdap Booster 1983 LIPID PANEL 1983 DEPRESSION SCREENING 1995 HEPATITIS C SCREENING 12/01/2001 HIV ONE-TIME SCREENING (18-6 5 YEARS) 12/01/2001 COVID-19 VACCINE (3 - 2023-2 5 season) 2024 05/08/2021, 04/10/2021 HEPATITIS A VACCINES Aged Out No long er eligible based on patient's age to complete this topic HIB VACCINES Aged Out No longer eligi ble based on patient's age to complete this topic MENINGOCOCCAL VACCINES (ACWY) Aged Out No longer eligible based on patient's age to complete this topic MENINGOCOCCAL VACCINES (B) Aged Out N o longer eligible based on patient's age to complete this topic PNEUMOCOCCAL VACCINES (0-49 years) Aged Out No longer eligible b ased on patient's age to complete this topic Medical Devices Not on file Insurance [place] [employer] [place] [employer] [place] [employer] [place] [employer] [place] [employer] [place] [employer] [place] [employer] PPO [facility] [place] [employer] PPO Care Teams Decorator Inspector Relationship Specialty Start Date End Date Suresh Ortega MD [address] [place] [phone] PCP - General Family Medicine 02/23/17 Additional Source Comments The information contained in this document represents components of the legal health record. It is not the complete legal health record.[facility]
[2024-12-20 16:19] VITALS: BP 138/68; PULSE 77; RESP 18; O2SAT 99
[2024-12-20 17:03] VITALS: BP 138/68; PULSE 77; RESP 18; TEMP -17.7; TEMP 0; O2SAT 99
== END 2024-12-20 17:03 | disposition home or self-care (01) ==
PROVIDERS: Registered Nurse Emergency; Emergency Provider Emergency Medicine; PCP Family Medicine
DX: I10 Essential (primary) hypertension (principal); I48.91 Unspecified atrial fibrillation; E66.9 Obesity, unspecified; Z68.43 Body mass index [BMI] 50.0-59.9, adult; R20.2 Paresthesia of skin; Z79.899 Other long term (current) drug therapy
CPT/HCPCS: 36415; 71046; 80053; 84484; 85025; 85610; 93005; 99283; 99284

== ENCOUNTER → 2024-12-20 11:45 | Outpatient (BNV) | payer OTHER, SELFPAY | PROVIDERS: PCP Family Medicine; Visit Provider Radiology Diagnostic Radiology | DX: R07.89 Other chest pain (principal) | CPT/HCPCS: 71046 ==

== ENCOUNTER → 2024-12-20 11:45 | Outpatient (BNV) | payer OTHER, SELFPAY | PROVIDERS: PCP Family Medicine; Visit Provider Internal Medicine Cardiovascular Disease | DX: R07.89 Other chest pain (principal) | CPT/HCPCS: 93010 ==